=== PATIENT | female | born 1945 | race Hispanic/Latino ===

== ENCOUNTER 2017-04-06 13:30 | Day surgery (SDC) | payer MEDICARE, OTHER ==
[~2017-04-06] VITALS: Ht 147.3 cm; Wt 77.6 kg
[~2017-04-06 13:30] MED LIST: (None)10 MG OR; ACULAR LS0.4 % OU; ALPRAZOLAM0.5 MG PO; BETIMOL0.5 % OP; CELEXA20 MG PO; CETIRIZ/PSE1 TAB PO; CIPRO500 MG OR; COSOPT1 ML OU; GEMFIBROZIL600 MG OR; LISINOPRIL10 MG PO; LISINOPRIL2.5 MG OR; LORTAB 5-325 MG1 TAB PO; LORTAB5 OR; MEDDOSEPAK PO; MIACALCIN200 MG/ACT; MIRALAX3350 N1 OR; MURINE EAR6.5 % OT; POLYTRIM OP; PRED FORTE1 % OS; PROZAC20 M1 OR; SYSTANE OU; TAM75CAP OR; TESSALON PER100 MG PO; TRAMADOL HCL50 MG PO; TRAVATAN0.004 % OP; VICODIN HP1 TAB OR; XALATAN 0.005%2.5 ML OP; ZITHROMAX250 MG PO; ZPAK PO; [UNRECOGNIZED DRUG - OTHER] OU
[2017-04-06 17:28] VITALS: BP 129/67
== END 2017-04-06 17:50 | disposition home or self-care (01) ==
LOC: ENDO 13:30
PROVIDERS: ATTEND Internal Medicine Gastroenterology
PROC: 0DBH8ZX Excision of Cecum, Via Natural or Artificial Opening Endoscopic, Diagnostic (ICD-10-PCS; principal; 2017-04-06)
PROC: 0DBL8ZX Excision of Transverse Colon, Via Natural or Artificial Opening Endoscopic, Diagnostic (ICD-10-PCS; 2017-04-06)
PROC: 0DBN8ZX Excision of Sigmoid Colon, Via Natural or Artificial Opening Endoscopic, Diagnostic (ICD-10-PCS; 2017-04-06)
DX: R19.5 Other fecal abnormalities (principal); D12.0 Benign neoplasm of cecum; D12.5 Benign neoplasm of sigmoid colon; D12.3 Benign neoplasm of transverse colon; K64.4 Residual hemorrhoidal skin tags; K64.8 Other hemorrhoids; K57.30 Diverticulosis of large intestine without perforation or abscess without bleeding; Z80.0 Family history of malignant neoplasm of digestive organs; Z86.010 Personal history of colon polyps

== ENCOUNTER 2017-05-18 10:14 | Day surgery (SDC) | payer MEDICARE, OTHER ==
[~2017-05-18] VITALS: Ht 147.3 cm; Wt 75.8 kg
[~2017-05-18 10:14] MED LIST changes: +CRESTOR10 MG PO; -TRAVATAN0.004 % OP; +TRAVATAN0.0041 OU
[2017-05-18 12:58] VITALS: BP 149/67
== END 2017-05-18 13:27 | disposition home or self-care (01) ==
LOC: ENDO 10:14
PROVIDERS: ATTEND Internal Medicine Gastroenterology
PROC: 0DB68ZX Excision of Stomach, Via Natural or Artificial Opening Endoscopic, Diagnostic (ICD-10-PCS; principal; 2017-05-18)
DX: K29.51 Unspecified chronic gastritis with bleeding (principal); K31.89 Other diseases of stomach and duodenum; K31.7 Polyp of stomach and duodenum; K57.30 Diverticulosis of large intestine without perforation or abscess without bleeding; K64.8 Other hemorrhoids; H40.9 Unspecified glaucoma; Z80.0 Family history of malignant neoplasm of digestive organs; Z85.41 Personal history of malignant neoplasm of cervix uteri; Z86.010 Personal history of colon polyps

== ENCOUNTER → 2017-11-14 | Outpatient (REF) | payer MEDICARE, OTHER ==
[2017-11-14 07:56] LABS: HEMOGLOBIN 12.1 g/dl (12.0-16.0); IMMATURE GRANULOCYTES 0.3 % (0.0-5.0); MEAN CELL VOLUME 93.9 fL CALC (80.0-100.0); MEAN CORPUSCULAR HGB 28.4 pG CALC (26.0-32.0); MEAN CORPUSCULAR HGB CONC 30.3 g/L CALC (32.0-36.0); NEUT# 3.31 thou/uL (2.00-7.15); RED BLOOD COUNT 4.26 mill/uL (4.20-5.60); RED CELL DISTRI WIDTH 14.3 % (11.5-15.5)
[2017-11-14 08:33] LABS: ALBUMIN 3.7 g/dL (3.2-5.0); BILIRUBIN, TOTAL 0.4 mg/dL (0.0-1.4); CHOLESTEROL HDL RATIO 2.9 (<4.4 (CALC)); CREATININE 1.3 mg/dL (0.5-1.0); POTASSIUM 4.6 mmol/l (3.5-5.1); TOTAL PROTEIN 6.8 g/dL (6.3-8.2)
== END | disposition home or self-care (01) ==
LOC: LAB 06:37
PROVIDERS: ATTEND Internal Medicine Geriatric Medicine
DX: I10 Essential (primary) hypertension (principal); E78.00 Pure hypercholesterolemia, unspecified

== ENCOUNTER 2018-04-06 09:40 | Emergency (ER) | payer MEDICARE, OTHER ==
[~2018-04-06] VITALS: Ht 147.3 cm; Wt 68.0 kg
[2018-04-06] MEDS ORDERED: ROBITUSSIN AC10 ML PO (13:30)
[2018-04-06] MEDS ORDERED: ZPAK PO (13:30)
[2018-04-06 13:43] VITALS: BP 158/72
== END 2018-04-06 13:48 | disposition home or self-care (01) ==
LOC: ED 09:40
DX: J06.9 Acute upper respiratory infection, unspecified (principal); F41.9 Anxiety disorder, unspecified

== ENCOUNTER 2022-02-07 09:02 | Observation (INO) | payer MEDICARE, OTHER ==
[2022-02-07] VITALS (13 sets, daily range): BP systolic 106–155; BP diastolic 60–76
[~2022-02-07] VITALS: Ht 147.3 cm; Wt 73.0 kg
[~2022-02-07 09:02] MED LIST changes: +BETIMOL0.51 OD; +COSOPT1 ML OD; -COSOPT1 ML OU; +DORZOLAMIDE HCL2 % OD; +Levaquin PO; +OMEPRAZOLE10 MG PO; +PREDNISONE10 MG PO; +PREDNISONE50 MG PO; +PROAIR HFA108 MCG/AC PO; +ROBITUSSIN AC10 ML PO; +SYSTANE COMPLET0.6 % OU; +TRAVATAN0.0041 OD
[2022-02-07] MEDS ORDERED: TRELEGY ELLIPTA1 AER (09:24)
[2022-02-07 09:30] LABS: BASO% 0.4 % (0-3); EOS% 2.3 % (0-8); HEMATOCRIT 37.5 % (37.0-47.0); IMMATURE GRANULOCYTES 0.2 % (0.0-5.0); LYMPH% 12.7 % (15-41); MEAN CELL VOLUME 94.2 fL CALC (80.0-100.0); MEAN CORPUSCULAR HGB 30.2 pG CALC (26.0-32.0); MONO% 9.9 % (2-13); NEUT# 6.05 thou/uL (2.00-7.15); NEUT% 74.5 % (42-76); RED BLOOD COUNT 3.98 mill/uL (4.20-5.60); RED CELL DISTRI WIDTH 14.4 % (11.5-15.5)
[2022-02-07 10:26] LABS: URINE BILIRUBIN - DIPSTICK NEGATIVE (NEGATIVE); URINE BLOOD DIPSTICK MODERATE (NEGATIVE); URINE COLOR YELLOW; URINE GLUCOSE - DIPSTICK NEGATIVE (NEGATIVE); URINE KETONE NEGATIVE (NEGATIVE); URINE PROTEIN - DIPSTICK 30 mg/dL (NEG-TRACE); URINE SPECIFIC GRAVITY 1.025; URINE UROBILINOGEN - DIPSTICK 0.2 E.U./dL (0.2)
[2022-02-07 10:29] LABS: URINE LEUK ESTERASE SMALL (NEGATIVE); URINE NITRITE - DIPSTICK NEGATIVE (Negative)
[2022-02-07 10:30] LABS: URINE BACTERIA FEW hpf; URINE EPITHELIAL CELLS MODERATE EPI/hpf (0-FEW)
[2022-02-07 10:35] LABS: ALBUMIN 3.9 g/dL (3.2-5.0); BILIRUBIN, TOTAL 0.5 mg/dL (0.0-1.4); CREATININE 1.4 mg/dL (0.5-1.0); POTASSIUM 4.1 mmol/l (3.5-5.1); TOTAL PROTEIN 6.6 g/dL (6.3-8.2)
[2022-02-08] VITALS (7 sets, daily range): BP systolic 126–184; BP diastolic 54–79
[2022-02-08 05:46] LABS: HEMATOCRIT 33.3 % (37.0-47.0); HEMOGLOBIN 10.6 g/dl (12.0-16.0); MEAN CELL VOLUME 94.9 fL CALC (80.0-100.0); MEAN CORPUSCULAR HGB 30.2 pG CALC (26.0-32.0); MEAN CORPUSCULAR HGB CONC 31.8 g/dL CAL (32.0-36.0); RED BLOOD COUNT 3.51 mill/uL (4.20-5.60); RED CELL DISTRI WIDTH 14.5 % (11.5-15.5)
[2022-02-08 06:01] LABS: CREATININE 1.4 mg/dL (0.5-1.0); POTASSIUM 3.5 mmol/l (3.5-5.1)
[2022-02-09] VITALS (7 sets, daily range): BP systolic 113–171; BP diastolic 53–75
[2022-02-09 05:11] LABS: BASO% 0.4 % (0-3); EOS% 5.3 % (0-8); HEMATOCRIT 35.4 % (37.0-47.0); HEMOGLOBIN 11.3 g/dl (12.0-16.0); IMMATURE GRANULOCYTES 0.2 % (0.0-5.0); LYMPH% 25.1 % (15-41); MEAN CELL VOLUME 93.7 fL CALC (80.0-100.0); MEAN CORPUSCULAR HGB 29.9 pG CALC (26.0-32.0); MEAN CORPUSCULAR HGB CONC 31.9 g/dL CAL (32.0-36.0); MONO% 10.7 % (2-13); NEUT# 2.94 thou/uL (2.00-7.15); NEUT% 58.3 % (42-76); RED BLOOD COUNT 3.78 mill/uL (4.20-5.60); RED CELL DISTRI WIDTH 14.4 % (11.5-15.5)
[2022-02-09 05:16] LABS: ALBUMIN 3.5 g/dL (3.2-5.0); BILIRUBIN, TOTAL 0.4 mg/dL (0.0-1.4); CREATININE 1.4 mg/dL (0.5-1.0); POTASSIUM 3.8 mmol/l (3.5-5.1); TOTAL PROTEIN 6.5 g/dL (6.3-8.2)
[2022-02-10 00:21] VITALS: BP 142/60
[2022-02-10 04:57] VITALS: BP 160/58
[2022-02-10 05:42] LABS: BASO% 0.7 % (0-3); EOS% 6.3 % (0-8); HEMATOCRIT 30.9 % (37.0-47.0); HEMOGLOBIN 9.9 g/dl (12.0-16.0); IMMATURE GRANULOCYTES 0.5 % (0.0-5.0); LYMPH% 25.1 % (15-41); MEAN CELL VOLUME 93.6 fL CALC (80.0-100.0); MONO% 13.5 % (2-13); NEUT# 2.33 thou/uL (2.00-7.15); NEUT% 53.9 % (42-76); RED BLOOD COUNT 3.3 mill/uL (4.20-5.60); RED CELL DISTRI WIDTH 14.4 % (11.5-15.5)
[2022-02-10 05:58] LABS: ALBUMIN 2.8 g/dL (3.2-5.0); BILIRUBIN, TOTAL 0.1 mg/dL (0.0-1.4); CREATININE 1.4 mg/dL (0.5-1.0); POTASSIUM 3.6 mmol/l (3.5-5.1); TOTAL PROTEIN 5.4 g/dL (6.3-8.2)
[2022-02-10 07:00] VITALS: BP 147/66
[2022-02-10] MEDS ORDERED: CIPROFLOXACN500 MG PO (10:34)
[2022-02-10] MEDS ORDERED: METRONIDAZOLE250 MG PO (10:41)
[2022-02-10 11:28] VITALS: BP 178/74
[2022-02-10 12:00] VITALS: BP 145/77
== END 2022-02-10 14:56 | disposition home or self-care (01) ==
LOC: ED 09:02 → ED-I 14:40 → ED 15:03 → MS2 15:04
PROVIDERS: Family Medicine; Nurse Practitioner Family; ADMIT Internal Medicine; ATTEND Internal Medicine
DX: A04.0 Enteropathogenic Escherichia coli infection (principal); K57.32 Diverticulitis of large intestine without perforation or abscess without bleeding; N17.9 Acute kidney failure, unspecified; E86.0 Dehydration; J44.9 Chronic obstructive pulmonary disease, unspecified; F41.9 Anxiety disorder, unspecified; K21.9 Gastro-esophageal reflux disease without esophagitis; Z87.891 Personal history of nicotine dependence
CPT/HCPCS: J1650; Q9967

== ENCOUNTER 2024-01-25 14:17 | Emergency (ER) | payer MEDICARE, OTHER ==
[~2024-01-25] VITALS: Ht 147.3 cm; Wt 64.0 kg
[~2024-01-25 14:17] MED LIST changes: +CIPROFLOXACN500 MG PO; +METRONIDAZOLE250 MG PO; +TRELEGY ELLIPTA1 AER
[2024-01-25 15:02] VITALS: BP 157/63
[2024-01-25] MEDS ORDERED: TETRACAINE HCL 0.5 %/4 ML SOL OU ONE (15:05)
[2024-01-25] MEDS ORDERED: FLUORESCEIN SODIUM 1 MG EA OU ONE (15:05)
[2024-01-25 15:15] VITALS: BP 125/60
[2024-01-25 15:30] VITALS: BP 134/60
[2024-01-25 15:45] VITALS: BP 145/61
[2024-01-25 16:01] VITALS: BP 140/65
[2024-01-25 16:16] VITALS: BP 134/61
== END 2024-01-25 16:25 | disposition home or self-care (01) ==
LOC: ED 14:17
DX: S05.02XA Injury of conjunctiva and corneal abrasion without foreign body, left eye, initial encounter (principal); H10.9 Unspecified conjunctivitis; J44.9 Chronic obstructive pulmonary disease, unspecified; X58.XXXA Exposure to other specified factors, initial encounter; Z94.7 Corneal transplant status; Z20.822 Contact with and (suspected) exposure to COVID-19